=== PATIENT | female | born 1970 | race Caucasian/White ===

== ENCOUNTER → 2019-06-11 | Outpatient (CLI) | payer BC, OTHER ==
[~2019-06-11] VITALS: Ht 177.8 cm; Wt 99.8 kg
[~2019-06-11] MED LIST: ASPIR 8181 MG PO; DEPAKOTE125 MG PO
[2019-06-11 07:16] VITALS: BP 119/69
[2019-06-11 07:29] LABS: HEMOGLOBIN 13.4 gm/dL (12.0-15.0); MCH 31.4 pg (26.0-34.0); MCHC 33.5 g/dL (28.0-37.0); MCV 93.7 fL (80.0-100.0); RBC 4.27 mil/uL (4.20-5.00); RDW 14.2 % (10.5-14.5); WBC 7.4 thou/uL (4.0-11.0)
[2019-06-11 07:46] LABS: CALCIUM 8.7 mg/dL (8.5-10.1); CREATININE 0.9 mg/dL (0.6-1.0); POTASSIUM 3.7 mmol/L (3.5-5.1)
--- NOTE | 2019-06-11 09:45 | CATHLAB ---
[facility] [place] [place] [address] INVASIVE PROCEDURE REPORT Name: ZAIRA MARRERO Room #: REG [facility]#: [id number] Admission: 06/11/19 Attend Phys: Sandeep Berry, Discharge: Date of : 70 Date of Service: 06/11/19 0944 Report #: [id number] THIS REPORT FOR: //name// APPROVED REPORT Study performed: 06/11/2019 07:32:15 Patient Details The patient is a 49 year-old female Event Personnel Sandeep Berry Employment Case Manager, Pete Sims RN RN, Marvin Garcia RTR Scrub, Alee Stearns RTR, WHEEL MILL OPERATOR Monitor, Alphonso Paz RTR Monitor Procedures Performed Left Heart Catheterization Indication Chest pain Procedure Narrative The Right Groin^ was infiltrated with 1% Lidocaine subcutaneous anesthesia. A PINNACLE 6FR Sheath #[id number] sheath was inserted into the RFA^. Coronary angiography was performed using coronary diagnostic catheters. The right coronary system was accessed and visualized with a 3DRC catheter. The left coronary system was accessed and visualized with a JL4 catheter. The left ventricle was accessed and visualized with a PIGTAIL catheter. Left ventricular/Aortic Valve gradient assessed via catheter pullback. Left ventriculogram was performed in CASTANO projection. Closure device was deployed with a Fr MYNX CONTROL 6F/7F #[id number]. The patient tolerated the procedure well and there were no complications associated with the procedure. There was no hematoma. Intraoperative Conscious Sedation Sedation start time: 804 Case end Time: 839 Fentanyl 100 mcg Versed 2 mg Fluoro Time: 2.29 minutes Dose: DAP 4024.58 cGycm2 495 mGy Contrast Type and Amount: Omnipaque 130 ml Coronary Angiography [facility] [address] [place] [address] INVASIVE PROCEDURE REPORT Name: JANESZAIRA Room #: [facility]#: [id number] Admission: 06/11/19 Attend Phys: Sandeep Berry, Discharge: Date of : 70 Date of Service: 06/11/19 0944 Report #: [id number] The patient's coronary anatomy is right dominant. Diagnostic Cath Left Main Normal left main LAD Normal left anterior descending Diagonal 1 Large first diagonal branch, angiographically normal Diagonal 2 Small second diagonal branch, normal Circumflex Large, nondominant circumflex, angiographically normal OM1 Moderate size first marginal branch, angiographically normal OM2 Small second marginal branch, angiographically normal Right Coronary Dominant and angiographically normal right coronary. Catheter-induced spasm relieved with intracoronary nitroglycerin R PDA Large posterior descending branch, angiographically normal RPLV Large posterolateral branch Left Ventriculography The left ventricle is normal in size with normal contractility. The left ventricular ejection fraction is estimated to be 60-65%. Left ventricular wall motion abnormalities are not present. There is no mitral insufficiency. Hemodynamics The aortic pressure is 101/52 mmHg with a mean of 78 mmHg. The left ventricular pressure is 120/15 mmHg with a mean of mmHg. The left ventricular end diastolic pressure is 24 mmHg. There was no gradient across the aortic valve upon pullback. Conclusion 1. Normal global and regional left ventricular systolic function. Ejection fraction 65% 2. Normal coronary vasculature. Right coronary dominant circulation. <ELECTRONICALLY SIGNED> By: Sandeep Berry MD, FACC 06/11/19 0944 Sandeep Berry MD, FACC /INF
--- NOTE | 2019-06-12 18:03 | EKG ---
[address] [place] [employer] [place] [address] ELECTROCARDIOGRAM REPORT Name: ZAIRA MARRERO Room #: REG [facility]#: [id number] Admission: 06/11/19 Attend Phys: Sandeep Berry MD, Discharge: Date of : 70 Report #: [id number] THIS REPORT FOR: //name// [facility] Test Date: 2019-06-11 Test Time: 07:31:25 Pat Name: ZAIRA MARRERO Department: Room: Gender: F [employer] Leader: Julio César NUNEZ : 1970 Requested By: Sandeep Brery Order Number: [id number] MD: Sandeep Berry Measurements Intervals [place] Rate: 57 P: 3 PA: 125 QRS: 29 QRSD: 97 T: 3 QT: 427 QTc: 416 Interpretive Statements Sinus bradycardia Nonspecific ST segment abnormality No previous ECG available for comparison Electronically Signed On 06-12-2019 18:03:37 CDT by Sandeep Berry [email or web address] <ELECTRONICALLY SIGNED> By: Sandeep Berry MD, [facility] 06/12/19 1803 0731 0731 Sandeep Berry MD, FACC /EPI
== END | disposition home or self-care (01) ==
LOC: CATH 06:53
PROVIDERS: Internal Medicine
DX: R07.9 Chest pain, unspecified (principal); E78.00 Pure hypercholesterolemia, unspecified; E78.5 Hyperlipidemia, unspecified; F17.210 Nicotine dependence, cigarettes, uncomplicated; Z79.82 Long term (current) use of aspirin; Z79.899 Other long term (current) drug therapy

== ENCOUNTER → 2021-08-25 | Outpatient (CLI) | payer OTHER | LOC: RAD 10:49 → CAT 10:49 | PROVIDERS: ATTEND Nurse Practitioner | DX: N28.1 Cyst of kidney, acquired (principal); E27.8 Other specified disorders of adrenal gland; M79.89 Other specified soft tissue disorders; J98.4 Other disorders of lung ==

== ENCOUNTER → 2021-10-18 | Outpatient (CLI) | payer OTHER | LOC: CAT 15:08 | PROVIDERS: ATTEND Nurse Practitioner | DX: G44.52 New daily persistent headache (NDPH) (principal); R68.83 Chills (without fever) ==